=== PATIENT | female | born 1935 | race Caucasian/White ===

== ENCOUNTER 2016-02-25 17:04 | Emergency (ER) | payer MEDICARE, BC ==
[~2016-02-25] VITALS: Ht 165.1 cm; Wt 65.9 kg
[~2016-02-25 17:04] MED LIST: AMITRIPTYLINE H50 M1 PO; AMITRIPTYLINE25 MG PO; CARVEDILOL PO; CARVEDILOL12.5 MG PO; CRESTOR5 MG PO; LEVOTHYROXIN0.075 MG PO; LISINOPRIL10 MG PO; SYNTHROID0.125 MG/T PO; ZESTRIL PO
[2016-02-25 17:06] VITALS: TEMP 97.7
[2016-02-25 17:53] VITALS: BP 165/98
[2016-02-25 18:11] VITALS: PULSE 79
== END 2016-02-25 18:24 | disposition home or self-care (01) ==
LOC: COL.ER 17:04
DX: S40.021A Contusion of right upper arm, initial encounter (principal); W01.0XXA Fall on same level from slipping, tripping and stumbling without subsequent striking against object, initial encounter

== ENCOUNTER → 2017-03-05 | Outpatient (CLI) | payer MEDICARE, BC | LOC: COL.VAS 14:28 | DX: M79.604 Pain in right leg (principal); R10.31 Right lower quadrant pain ==

== ENCOUNTER → 2021-09-21 | Outpatient (CLI) | payer MEDICARE, BC ==
[~2021-09-21] MED LIST changes: +ALINIA500 MG PO; +ASPIRIN E.C. 8181 MG PO; +BIAXIN 500MG T500 MG PO; +CALCIUM 600600 MG PO; +COREG 25MG25 MG/TAB PO; +COUMADIN 22.5 MG/TAB PO; +CRESTOR 10MG10 MG PO; +DITROPAN 5MG TAB5 MG PO; +EUTHYROX25 MCG PO; +FOSAMAX 70MG TA70 MG PO; +LASIX 20MG TABL20 MG PO; -LEVOTHYROXIN0.075 MG PO; +NORVASC 5MG5 MG/TAB PO; +SYNTHROID0.05 MG/TA PO; -SYNTHROID0.125 MG/T PO; +TYLENOL 325MG325 MG PO; +ZESTRIL40 MG PO
== END ==
LOC: COL.RAD 08:47
DX: N17.9 Acute kidney failure, unspecified (principal)